=== PATIENT | female | born 1960 | race Caucasian/White ===

== ENCOUNTER 2023-05-18 13:21 | Outpatient (CLI) | payer OTHER | END 2023-05-18 13:22 | disposition home or self-care (01) | LOC: CSHCT 13:21 | PROVIDERS: ATTEND Internal Medicine | DX: E78.2 Mixed hyperlipidemia (principal) | CPT/HCPCS: 75571 ==

== ENCOUNTER 2023-05-18 14:09 | Outpatient (CLI) | payer OTHER | END 2023-05-18 14:10 | disposition home or self-care (01) | LOC: CSHMAMMO 14:09 | PROVIDERS: ATTEND Internal Medicine | DX: Z13.820 Encounter for screening for osteoporosis (principal); M85.89 Other specified disorders of bone density and structure, multiple sites; Z78.0 Asymptomatic menopausal state | CPT/HCPCS: 77080 ==